=== PATIENT | male | born 2000 | race Hispanic/Latino ===

== ENCOUNTER 2022-04-05 23:48 | Emergency (ER) | payer OTHER ==
[2022-04-06] MEDS ORDERED: Lidocaine 1% w/Epinephrine 1:100K 20 ML VIAL ONE (00:04)
[2022-04-06] MEDS ORDERED: Bacitracin 1 PK ONE (00:45)
== END 2022-04-06 00:56 | disposition home or self-care (01) ==
LOC: MADERS 23:48
DX: S51.811A Laceration without foreign body of right forearm, initial encounter (principal); W26.0XXA Contact with knife, initial encounter
CPT/HCPCS: 12006